=== PATIENT | male | born 1985 | race Hispanic/Latino ===

== ENCOUNTER 2022-10-08 18:06 | Emergency (ER) | payer OTHER ==
[~2022-10-08] VITALS: Ht 180.3 cm; Wt 106.6 kg
[2022-10-08] MEDS ORDERED: MORPHINE 4 MG SYG IVP ONE (19:30)
[2022-10-08 20:02] VITALS: BP 122/77
[2022-10-08] MEDS ORDERED: DICL75TA5 PO (20:48)
[2022-10-08] MEDS ORDERED: METH-662 PO (20:48)
== END 2022-10-08 21:03 | disposition home or self-care (01) ==
LOC: EDH 18:06
DX: M79.601 Pain in right arm (principal); R07.89 Other chest pain; V49.49XA Driver injured in collision with other motor vehicles in traffic accident, initial encounter; Y93.89 Activity, other specified; Y92.89 Other specified places as the place of occurrence of the external cause; Y99.8 Other external cause status
CPT/HCPCS: 99284; 96374; 71045; 73080; 73090; 73060; 73030; 73110; J2270